=== PATIENT | female | born 1985 | race Native Hawaiian/Other Pacific Islander ===

== ENCOUNTER 2022-11-23 20:52 | Emergency (ER) | payer OTHER ==
[~2022-11-23] VITALS: Ht 157.5 cm; Wt 116.1 kg
[2022-11-23 21:05] VITALS: BP 144/88; TEMP 98.1
[2022-11-23 21:57] LABS: PLATELET COUNT 305 K/uL (152-353)
[2022-11-23 22:04] LABS: POTASSIUM 4.7 mmol/L (3.6-5.2)
== END 2022-11-23 23:45 | disposition home or self-care (01) ==
LOC: ED 20:52
PROVIDERS: Family Medicine
DX: K21.9 Gastro-esophageal reflux disease without esophagitis (principal)
CPT/HCPCS: 80053; 81002; 81025; 82150; 83690; 85027; 96374; 96375; 99284; J1885; J2405